=== PATIENT | female | born 1960 | race Caucasian/White ===

== ENCOUNTER 2020-06-08 23:16 | Day surgery (SDCO) | payer OTHER ==
[~2020-06-08] VITALS: Ht 162.6 cm; Wt 76.2 kg
[2020-06-08 23:47] LABS: BASOPHIL 0.8 % (0-2); EOSINOPHIL 2.5 % (0-5); HCT 43.3 % (37.0-47.0); LYMPHOCYTE 38.6 % (15-48); MCH 32.9 pg (25.0-31.0); MCHC 34.6 g/dL (32.0-36.0); MONOCYTE 7.6 % (0-12); MPV 11.3 fL (6.0-9.5); NEUTROPHIL 50.2 % (41-80); NRBC 0; PLT 320 K/uL (150-400); RBC 4.56 M/uL (4.20-5.40); RDW 13.2 % (11.5-14.0); WBC 10.1 K/uL (4.0-10.5)
[2020-06-08 23:51] LABS: INR 0.99 (0.9-1.2); PROTHROMBIN TIME 12.4 SECONDS (11.4-13.6)
[2020-06-08 23:53] LABS: D-DIMER 0.46 ug/mLFEU (0.00-0.41)
[2020-06-09 00:25] LABS: ALBUMIN 3.9 g/dL (3.4-5.0); BILIRUBIN - TOTAL 0.4 mg/dL (0.2-1.0); BUN/CREAT RATIO (CALC) 18.2 RATIO; CREATININE 0.88 mg/dL (0.51-0.95); GLOBULIN (CALCULATION) 3.9 g/dL; POTASSIUM 3.7 mmol/L (3.5-5.1); TOTAL PROTEIN 7.8 g/dL (6.4-8.2)
[2020-06-09 05:16] LABS: MAGNESIUM 1.7 mg/dL (1.8-2.4); PHOSPHORUS 3.5 mg/dL (2.6-4.7)
[2020-06-09 05:46] LABS: CORONAVIRUS 2019 SARS-COV-2 NEGATIVE (NEGATIVE); INFLUENZA A NAA NEGATIVE (NEGATIVE)
[2020-06-09] MEDS ORDERED: LISINOPRIL10 MG PO (05:51)
[2020-06-09] MEDS ORDERED: ROPINIROLE HCL1 MG PO (05:52)
[2020-06-09] MEDS ORDERED: TIZANIDINE HCL4 MG PO (05:52)
[2020-06-09] MEDS ORDERED: DIAZEPAM5 MG PO (05:53)
[2020-06-09] MEDS ORDERED: LEVOTHYROXINE100 MCG PO (05:54)
[2020-06-09] MEDS ORDERED: FLUOXETINE HCL20 MG PO (05:55)
[2020-06-09] MEDS ORDERED: ROSUVASTATIN CA10 MG PO (05:56)
[2020-06-09] MEDS ORDERED: LOPRESSOR50 MG PO (05:57)
[2020-06-09] MEDS ORDERED: OMEPRAZOLE 20MG20 MG PO (05:58)
--- NOTE | 2020-06-09 10:14 | NUR ---
PATIENT IS VERY SHAKEY, HAVING TO HOLD WATER AND MEDS BECAUSE SHE SHAKES ALOT. ASKED PATIENT IF SHE HAD PARKERSONS, SHE STATED THAT SHE WAS GOING TO SEE A DOCTOR ABOUT IT NEXT MONTH BECAUSE HER PARENTS AND BROTHER BOTH HAVE IT.
== END 2020-06-09 12:00 | disposition home or self-care (01) ==
LOC: FER 23:16 → FMS 06-09 04:33
PROVIDERS: Emergency Medicine; Nurse Practitioner; ADMIT Internal Medicine
DX: R07.89 Other chest pain (principal); I10 Essential (primary) hypertension; F32.9 Major depressive disorder, single episode, unspecified; F41.9 Anxiety disorder, unspecified; E78.5 Hyperlipidemia, unspecified; E03.9 Hypothyroidism, unspecified; G25.81 Restless legs syndrome; F17.210 Nicotine dependence, cigarettes, uncomplicated; Z20.822 Contact with and (suspected) exposure to COVID-19; Z79.890 Hormone replacement therapy; Z79.899 Other long term (current) drug therapy; Z88.0 Allergy status to penicillin; Z88.2 Allergy status to sulfonamides
CPT/HCPCS: 36415; 71045; 80053; 83735; 84100; 84484; 85025; 85379; 85610; 93005; G0378; J1650; U0002